=== PATIENT | male | born 1950 | race Caucasian/White ===

== ENCOUNTER → 2025-01-09 | Outpatient (CLI) | payer MEDICARE ==
[~2025-01-09] MED LIST: IOHEXOL 350 MG/ML 100ML INFUS..BTL IV ONE
--- NOTE | 2025-01-09 13:02 | HMCIMG ---
Exam Type: CT angiogram, abdomen and pelvis with contrast Clinical Information: Abdominal aortic aneurysm, without rupture, unspecified Comparison: None CT Dose Index (CTDI): mGy Dose Length Product (DLP): total mGy-cm Contrast: 100 cc's Isovue 370 IV, no complications Technique: Routine helical scanning at 5mm collimation through the chest, abdomen and pelvis after contrast administration. In addition, sagittal and coronary formations of the chest, abdomen and pelvis and surface rendering three-dimensional reconstructions of the abdominal aorta were performed. Findings: FINDINGS: There is aneurysmal dilatation of the distal abdominal aorta before the bifurcation, maximum diameter is 5.1 cm oblique anteroposterior by 3.4 cm oblique transverse. Length of the aneurysm is approximately 10 cm. There is no evidence of pulmonary embolism. The thyroid gland is unremarkable. The airway is intact. The trachea and major bronchi are unremarkable. The chest exam shows no pulmonary nodules or masses. No significant pulmonary parenchymal abnormalities are noted. No pulmonary infiltrates or mass lesions are seen. No pleural effusions are identified. The nonenhanced exam of the noa and mediastinum is unremarkable. No evidence of hilar enlargement is seen. The aorta shows no aneurysmal dilatation or significant atheromatous calcification. No significant brachiocephalic vascular abnormalities are seen. The heart is unremarkable. It is not enlarged. No significant coronary arterial calcifications are seen. There is no pericardial effusion. The rib cage appears unremarkable. The soft tissues of the chest wall are unremarkable. The dorsal spine shows no significant abnormalities. No evidence of nephro or ureterolithiasis is found. No hydronephrosis or ureteral dilatation is seen. Large hiatal hernia is seen and the stomach is otherwise unremarkable. The spleen is unremarkable. It is not enlarged. The pancreas shows normal anatomy. It is not fatty replaced. It shows no lesions. The pancreatic duct is not dilated. The gallbladder is unremarkable. It shows no cholelithiasis. The gallbladder wall is normal in thickness. There is no pericholecystic fluid. The is no acute or chronic inflammation noted. The adrenal glands are unremarkable. There is no enlargement. No lesions are noted. The liver is unremarkable. It shows no focal masses. The appendix is unremarkable. It shows no evidence of inflammation. No appendicolith is seen. The small bowel is unremarkable. There is no evidence of dilatation to suggest obstruction. No evidence of adynamic ileus is seen. There is no small bowel wall thickening to suggest enteritis. There is diverticulosis. There is no evidence of acute inflammation to suggest diverticulitis. The colon is otherwise unremarkable. The urinary bladder is unremarkable. There is no wall thickening to suggest tumor or inflammation. There are no intraluminal calculi. There are no diverticula. There is no evidence of chronic bladder outlet obstruction. There is no evidence of urinary bladder distention to suggest urinary retention. There is a possibly chronic hydrocele right side with thick wall, 6.3 cm maximum diameter. The bony and vascular structures are unremarkable for the patient's age. Impression: There is aneurysmal dilatation of the distal abdominal aorta before the bifurcation, maximum diameter is 5.1 cm oblique anteroposterior by 3.4 cm oblique transverse. Length of the aneurysm is approximately 10 cm. Diverticulosis of the colon. Possibly chronic hydrocele right scrotal region. Large hiatal hernia. This study was performed using dose reduction techniques to include automated exposure control and/or adjustment of the mA and/or kV according to patient size.
== END | disposition home or self-care (01) ==
LOC: RAH 10:47
PROVIDERS: ATTEND Internal Medicine Cardiovascular Disease
DX: K57.30 Diverticulosis of large intestine without perforation or abscess without bleeding (principal); K44.9 Diaphragmatic hernia without obstruction or gangrene; I71.40 Abdominal aortic aneurysm, without rupture, unspecified
CPT/HCPCS: 74174; 71275; Q9967

== ENCOUNTER → 2025-04-24 | Day surgery (SDC) | payer MEDICARE ==
[~2025-04-24] VITALS: Ht 185.4 cm; Wt 93.5 kg
[~2025-04-24] MED LIST changes: +ALLO300T2 PO; +ASPI-1443 PO; +BENA40TA92 PO; +CEFD300C3 PO; +DILT120C78 PO; +DOXA4TAB3 PO; -IOHEXOL 350 MG/ML 100ML INFUS..BTL IV ONE; +PANT40TA54 PO; +VERA180T60 PO
[2025-04-24 11:17] LABS: IMMATURE GRANULOCYTE ABSOLUTE 0.01 K/uL (0-1); NUCLEATED RED BLOOD CELLS 0.0 % (0.0-0.19); PLATELET COUNT (AUTO) 210 K/uL (130-400); RED BLOOD CELL COUNT(AUTO) 4.42 MIL/uL (4.50-6.20); RED CELL DISTRIBUTION WIDTH 14.2 % (11.0-15.5); WHITE BLOOD COUNT (AUTO) 6.1 K/uL (4.8-10.8)
[2025-04-24 11:27] LABS: INR 1.07 (0.85-1.15)
[2025-04-24 11:28] LABS: CREATININE 1.2 mg/dL (0.5-1.3); GLOMERULAR FILTR. RATE CALC 63.0 mL/min (>90); GLUCOSE,RANDOM 84.0 mg/dL (70-105); SODIUM SERUM 139.0 mmol/L (136-145); UREA NITROGEN, BLOOD 14.0 mg/dL (7-18)
[2025-04-24 11:48] VITALS: BP 128/76; PULSE 57; RESP 17; TEMP 98
== END | disposition home or self-care (01) ==
LOC: DAH 10:34
PROVIDERS: ATTEND Internal Medicine Cardiovascular Disease
DX: Z01.818 Encounter for other preprocedural examination (principal); I47.10 Supraventricular tachycardia, unspecified; Z79.01 Long term (current) use of anticoagulants; Z53.8 Procedure and treatment not carried out for other reasons
CPT/HCPCS: 36415; 80048; 85025; 85610; 85730

== ENCOUNTER 2025-06-06 06:46 | Day surgery (SDC) | payer MEDICARE ==
[2025-06-02 10:29] LABS: IMMATURE GRANULOCYTE ABSOLUTE 0.01 K/uL (0-1); NUCLEATED RED BLOOD CELLS 0.0 % (0.0-0.19); PLATELET COUNT (AUTO) 181 K/uL (130-400); RED BLOOD CELL COUNT(AUTO) 4.48 MIL/uL (4.50-6.20); RED CELL DISTRIBUTION WIDTH 14.7 % (11.0-15.5); WHITE BLOOD COUNT (AUTO) 6.0 K/uL (4.8-10.8)
[2025-06-02 10:37] LABS: CREATININE 1.1 mg/dL (0.5-1.3); GLOMERULAR FILTR. RATE CALC 70.0 mL/min (>90); GLUCOSE,RANDOM 72.0 mg/dL (70-105); SODIUM SERUM 137.0 mmol/L (136-145); UREA NITROGEN, BLOOD 16.0 mg/dL (7-18)
[2025-06-02 10:39] LABS: INR 1.09 (0.85-1.15)
[2025-06-02 10:54] VITALS: BP 129/66; PULSE 65; RESP 14; TEMP 98
[~2025-06-06] VITALS: Ht 185.4 cm; Wt 93.8 kg
[2025-06-06] VITALS (8 sets, daily range): BP systolic 129–155; BP diastolic 66–88; PULSE 55–65; RESP 11–17; TEMP 98.1
[~2025-06-06 06:46] MED LIST changes: -BENA40TA92 PO; -CEFD300C3 PO; -VERA180T60 PO
[2025-06-06] MEDS: 0.9%NACL 1000ML 1,000 ML IV SCH (07:32)
[2025-06-06] MEDS ORDERED: SODIUM BICARB 50MEQ 50ML VIAL 50 ML ONE (11:07)
[2025-06-06] MEDS ORDERED: LIDOCAINE HCL 400MG/20ML VIAL ONE (11:07)
[2025-06-06] MEDS ORDERED: HEParin-NS 1,000 UNIT/500 ML 1,000 ML IV ONE (11:08)
[2025-06-06] MEDS ORDERED: ISOPROTERENOL HCL 0.2 MG/ML AMP/VIAL/BAG ONE (11:17)
[2025-06-06] MEDS ORDERED: MIDAZOLAM HCL 1 MG/ML 2ML VIAL ONE ×2 (11:18→11:50)
--- NOTE | 2025-06-06 18:09 | NUR ---
FULL AND COMPLETE DISCHARGE INSTRUCTIONS GIVEN TO PATIENT AND FAMILY BOTH VERBALLY AND IN WRITING. VOICED UNDERSTANDING TO NETWORK PROFESSIONAL PROCEDURE FOLLOW UP EXPECTIONS AND PRECAUTIONS.GROIN SITES CLEAN, DRY WITH NO SIGN OF HEMATOMA, BRUISING OR BLEEDING. PEDAL PULSES INTACT. PATIENT DENIES C/O PAIN OR NEED. PIV REMOVED WITH CATHETER TIP INTACT. W/C TO POV WITH FAMILY TO HOME SCHEDULED.
== END 2025-06-06 18:00 | disposition home or self-care (01) ==
LOC: DAH 06:46
PROVIDERS: ATTEND Internal Medicine Cardiovascular Disease
DX: I47.10 Supraventricular tachycardia, unspecified (principal); I10 Essential (primary) hypertension; M19.90 Unspecified osteoarthritis, unspecified site; Z96.651 Presence of right artificial knee joint; Z98.42 Cataract extraction status, left eye; Z98.41 Cataract extraction status, right eye; Z79.82 Long term (current) use of aspirin; Z79.01 Long term (current) use of anticoagulants; Z79.899 Other long term (current) drug therapy
CPT/HCPCS: 80048; 85025; 85610; 85730; 36415; 93653; 99156; 99157 ×5; C1894 ×3; C1732 ×2; C1730 ×2; C1893; A4649 ×2; C1760 ×3; J3010 ×2; J3490 ×3; J7030; J1644 ×2; J2250 ×2; A4215; A4222; A4221; A4663; A4216; A4606; A4223 ×3